=== PATIENT | male | born 1995 | race Two or more races ===

== ENCOUNTER 2023-04-04 11:07 | Emergency (ER) | payer OTHER ==
[~2023-04-04] VITALS: Ht 167.6 cm; Wt 65.1 kg
[2023-04-04] MEDS ORDERED: KETOROLAC TROMETHAMINE 30 MG/ML VIAL IV ONE (11:27)
[2023-04-04] MEDS ORDERED: SODIUM CHLORIDE 0.9% 1000ML 1,000 ML IV SCH (11:30)
[2023-04-04] MEDS ORDERED: SODIUM CHLORIDE 0.9% 1000ML 1,000 ML ONE (11:38)
[2023-04-04] MEDS ORDERED: KETOROLAC TROMETHAMINE 30 MG/ML VIAL ONE (11:38)
[2023-04-04] MEDS ORDERED: ONDANSETRON ODT4 MG PO (13:32)
[2023-04-04] MEDS ORDERED: CEFDINIR300 MG PO (13:32)
[2023-04-04] MEDS ORDERED: NAPROSYN500 MG PO (13:32)
[2023-04-04 13:43] VITALS: O2SAT 100
== END 2023-04-04 13:43 | disposition home or self-care (01) ==
LOC: FSED 11:12
DX: R31.9 Hematuria, unspecified (principal); M54.50 Low back pain, unspecified; N20.0 Calculus of kidney; R10.30 Lower abdominal pain, unspecified; K57.30 Diverticulosis of large intestine without perforation or abscess without bleeding
CPT/HCPCS: 74176; 80048; 80076; 81003; 85025; 96374; 99284; J1885; J7030